=== PATIENT | female | born 1950 | race Two or more races ===

== ENCOUNTER 2022-11-22 19:36 | Inpatient (IN) | payer MEDICARE, OTHER ==
[~2022-11-22] VITALS: Ht 175.3 cm; Wt 106.7 kg
[2022-11-22] MEDS ORDERED: cloNIDine HCL 0.1 MG TAB PO ONE (20:15)
[2022-11-22 21:02] LABS: Basophils # (auto) 0 10 ^3/uL (0-0.2); Basophils % (auto) 0.3 % (0.0-2.0); Eosinophils # (auto) 0 10 ^3/uL (0-0.8); Eosinophils % (auto) 0.2 % (0.0-7.0); Hematocrit 43.4 % (36.0-46.0); Hemoglobin 14.4 g/dL (12.2-16.2); Lymphocytes # (auto) 2.2 10 ^3/uL (0.4-5.4); Lymphocytes % (auto) 34.6 % (10.0-50.0); Mean Corpuscular Hemoglobin 28.3 pg (28.0-32.0); Mean Corpuscular Hgb Conc. 33.3 g/dL (32.0-36.0); Monocytes % (auto) 15.3 % (0.0-12.0); Neutrophils # (auto) 3.1 10 ^3/uL (1.6-8.6); Neutrophils % (auto) 49.6 % (37.0-80.0); Red Cell Distribution Width 14.9 % (11.8-14.3); White Blood Cell 6.3 10^3/uL (4.4-10.8)
[2022-11-22 21:16] LABS: INR 1.01 (0.9-1.15); Partial Thromboplastin Time 31.9 SEC (24.5-34.5); Prothrombin Time 10.6 sec (9.3-11.8)
[2022-11-22 21:19] LABS: Albumin 4.5 g/dL (3.4-5.0); BUN/Creatinine Ratio 21.4 (10.0-20.0); Magnesium 2.4 mg/dL (1.6-2.6); Potassium 4.1 mmol/L (3.5-5.1)
[2022-11-22 21:28] LABS: Bilirubin, Total 1.3 mg/dL (0.2-1.0); Total Protein 7.9 g/dL (6.4-8.2)
[2022-11-22] MEDS ORDERED: ACETAMINOPHEN 325 MG TAB PO ONE (22:00)
[2022-11-23] MEDS ORDERED: IBUPROFEN 600 MG TAB PO ONE (01:30)
[2022-11-23 02:30] LABS: Urine Bacteria FEW /hpf (None Seen); Urine Blood Negative /uL (Negative); Urine Clarity HAZY (Clear); Urine Color Colorless (Yellow); Urine Hyaline Cast FEW /lpf (0 - 2); Urine Protein, UAD Negative (Negative); Urine Urobilinogen Normal (Negative); Urine WBC 90 /hpf (0 - 5); Urine WBC Clumps PRESENT /hpf (None Seen); Urine pH 5.5 (5.0-8.0)
[2022-11-23] MEDS ORDERED: hydrALAZINE HCL 20 MG/ML VL IV PRN (03:45)
[2022-11-23] MEDS ORDERED: MORPHINE SULFATE INJ 2 MG/ml SYRG IV PRN (03:45)
[2022-11-23] MEDS ORDERED: ONDANSETRON HCL 4 MG/2 ML VIAL IV PRN (03:45)
[2022-11-23] MEDS ORDERED: NITROGLYCERIN 0.4 MG SL TAB SL PRN (03:45)
[2022-11-23 04:45] VITALS: PULSE 53; RESP 20; O2SAT 93
[2022-11-23] MEDS: cefTRIAXone 1GM/50ML D5W 50 ML IV SCH (04:55)
[2022-11-23 07:30] VITALS: PULSE 57; RESP 17; O2SAT 95
[2022-11-23] MEDS ORDERED: LISINOPRIL 10 MG TAB PO SCH (10:00)
[2022-11-23] MEDS ORDERED: ENOXAPARIN SOD 40 MG/0.4 ML SYRINGE SC SCH (10:00)
[2022-11-23] MEDS ORDERED: PANTOPRAZOLE 40 MG TAB PO SCH (10:00)
[2022-11-23] MEDS: ACETAMINOPHEN 325 MG TAB PO PRN (11:00)
[2022-11-23] MEDS ORDERED: FLUTICASONE PROP NASAL SPR 0.05 % (50MCG) 16GM EACHNOSTRI ONE (14:15)
[2022-11-23] MEDS ORDERED: OXYMETAZOLINE HCL 0.05 % NASAL SPRAY 15ML EACHNOSTRI ONE (14:15)
[2022-11-23] MEDS ORDERED: AZITHROMYCIN 500MG/ 250ML 250 ML IV ONE (14:15)
[2022-11-23] MEDS: MORPHINE SULFATE INJ 2 MG/ml SYRG IV PRN (14:46)
[2022-11-23 17:14] LABS: Alcohol, Urine < 3.0 mg/dL (0-10); Amphetamine Screen, Urine NEGATIVE (NEGATIVE); Barbiturate Scree,Urine NEGATIVE (NEGATIVE); Benzodiazephine Screen, Urine NEGATIVE (NEGATIVE); Cannabinoid Screen, Urine NEGATIVE (NEGATIVE); Cocaine Screen, Urine NEGATIVE (NEGATIVE); Opiate Scree,Urine NEGATIVE (NEGATIVE); Phencyclidine Screen, Urine NEGATIVE (NEGATIVE)
[2022-11-23 19:20] VITALS: RESP 20; O2SAT 95
[2022-11-23] MEDS: HYDROcodone-ACET 5/325MG TAB PO PRN (19:55)
[2022-11-23] MEDS: FLUTICASONE PROP NASAL SPR 0.05 % (50MCG) 16GM EACHNOSTRI SCH (23:21)
[2022-11-23] MEDS: OXYMETAZOLINE HCL 0.05 % NASAL SPRAY 15ML EACHNOSTRI SCH (23:21)
[2022-11-23] MEDS: APIXABAN 5 MG TAB PO SCH (23:22)
[2022-11-24] VITALS (7 sets, daily range): BP systolic 133–150; BP diastolic 63–71; PULSE 68–92; RESP 16–19; TEMP 98.8–99.5; O2SAT 91–97
[2022-11-24 05:17] LABS: Basophils # (auto) 0 10 ^3/uL (0-0.2); Basophils % (auto) 0.2 % (0.0-2.0); Eosinophils # (auto) 0 10 ^3/uL (0-0.8); Hematocrit 39.7 % (36.0-46.0); Hemoglobin 13.4 g/dL (12.2-16.2); Lymphocytes # (auto) 1.3 10 ^3/uL (0.4-5.4); Lymphocytes % (auto) 17.9 % (10.0-50.0); Mean Corpuscular Hemoglobin 28.6 pg (28.0-32.0); Mean Corpuscular Hgb Conc. 33.8 g/dL (32.0-36.0); Mean Corpuscular Volume 84.5 fL (80.0-100.0); Neutrophils # (auto) 4.9 10 ^3/uL (1.6-8.6); Neutrophils % (auto) 67.9 % (37.0-80.0); Red Cell Distribution Width 14.6 % (11.8-14.3); White Blood Cell 7.2 10^3/uL (4.4-10.8)
[2022-11-24 05:21] LABS: Albumin 3.9 g/dL (3.4-5.0); Calcium 10.1 mg/dL (8.5-10.1); Potassium 3.3 mmol/L (3.5-5.1)
[2022-11-24 05:28] LABS: BUN/Creatinine Ratio 20.3 (10.0-20.0); Bilirubin, Total 1.4 mg/dL (0.2-1.0); Total Protein 7.6 g/dL (6.4-8.2)
[2022-11-24] MEDS: HYDROcodone-ACET 5/325MG TAB PO PRN (05:40)
[2022-11-24] MEDS ORDERED: POTASSIUM EFFERVESENT TAB 25 MEQ PO ONE (07:45)
[2022-11-24] MEDS: cefTRIAXone 1GM/50ML D5W 50 ML IV SCH (09:31)
[2022-11-24] MEDS: APIXABAN 5 MG TAB PO SCH ×2 (09:31→22:34)
[2022-11-24] MEDS ORDERED: BENAZEPRIL HCL 10 MG TAB PO SCH (10:00)
[2022-11-24] MEDS: FLUTICASONE PROP NASAL SPR 0.05 % (50MCG) 16GM EACHNOSTRI SCH ×2 (10:08→22:35)
[2022-11-24] MEDS: OXYMETAZOLINE HCL 0.05 % NASAL SPRAY 15ML EACHNOSTRI SCH ×2 (10:08→22:36)
[2022-11-24] MEDS: ACETAMINOPHEN 325 MG TAB PO PRN ×2 (11:17→20:44)
[2022-11-24] MEDS: AZITHROMYCIN 500MG/ 250ML 250 ML IV SCH (11:59)
[2022-11-24] MEDS ORDERED: FLUCONAZOLE 200MG/100ML 100 ML IV ONE (12:15)
[2022-11-24] MEDS: MORPHINE SULFATE INJ 2 MG/ml SYRG IV PRN (18:43)
[2022-11-24] MEDS: ATORVASTATIN 20 MG TAB PO SCH (22:34)
[2022-11-25] VITALS (9 sets, daily range): BP systolic 116–166; BP diastolic 67–86; PULSE 72–85; RESP 18–19; TEMP 98.3–99.6; O2SAT 91–95
[2022-11-25] MEDS: ACETAMINOPHEN 325 MG TAB PO PRN ×3 (05:54→20:29)
[2022-11-25 06:46] LABS: Hematocrit 41.8 % (36.0-46.0); Mean Corpuscular Hemoglobin 28.3 pg (28.0-32.0); Mean Corpuscular Hgb Conc. 33.4 g/dL (32.0-36.0); Mean Corpuscular Volume 84.8 fL (80.0-100.0); Red Blood Cells 4.93 10^6/uL (4.0-5.20); Red Cell Distribution Width 14.5 % (11.8-14.3); White Blood Cell 6.5 10^3/uL (4.4-10.8)
[2022-11-25 07:01] LABS: Albumin 3.5 g/dL (3.4-5.0); Calcium 10.3 mg/dL (8.5-10.1); Potassium 3.8 mmol/L (3.5-5.1)
[2022-11-25 07:05] LABS: BUN/Creatinine Ratio 20.3 (10.0-20.0); Bilirubin, Total 1.2 mg/dL (0.2-1.0); Total Protein 7.8 g/dL (6.4-8.2)
[2022-11-25 07:06] LABS: Band Neutrophils % (manual) 0; Basophils % (manual) 0 (0.0-2.0); Blast Cells 0; Metamyelocytes % 0; Myelocytes % 0; Promyelocytes % 0; Reactive Lymphocytes 0
[2022-11-25 08:23] LABS: Eosinophils % (manual) 1 (0-7); Lymphocytes % (manual) 22 (10.0-50.0)
[2022-11-25 08:24] LABS: Monocytes % (manual) 19 (0-12); Platelet Estimate Adequate
[2022-11-25] MEDS: FLUTICASONE PROP NASAL SPR 0.05 % (50MCG) 16GM EACHNOSTRI SCH ×2 (09:36→21:36)
[2022-11-25] MEDS: FLUCONAZOLE 200MG/100ML 100 ML IV SCH (09:36)
[2022-11-25] MEDS: cefTRIAXone 1GM/50ML D5W 50 ML IV SCH (09:36)
[2022-11-25] MEDS: OXYMETAZOLINE HCL 0.05 % NASAL SPRAY 15ML EACHNOSTRI SCH ×2 (09:36→21:36)
[2022-11-25] MEDS: BENAZEPRIL HCL 10 MG TAB PO SCH ×2 (09:37→21:35)
[2022-11-25] MEDS: AZITHROMYCIN 500MG/ 250ML 250 ML IV SCH (09:38)
[2022-11-25] MEDS: HYDROcodone-ACET 5/325MG TAB PO PRN ×2 (09:51→16:33)
[2022-11-25] MEDS: APIXABAN 5 MG TAB PO SCH ×2 (09:58→21:34)
[2022-11-25] MEDS ORDERED: BENAZEPRIL HCL 10 MG TAB PO SCH (10:00)
[2022-11-25] MEDS ORDERED: IOHEXOL 300 MG/ML 100ML BOTTLE IJ ONE (17:35)
[2022-11-25] MEDS: DOXYCYCLINE 100 MG TAB/CAP PO SCH (21:35)
[2022-11-25] MEDS: ATORVASTATIN 20 MG TAB PO SCH (21:36)
[2022-11-26] VITALS (7 sets, daily range): BP systolic 136–149; BP diastolic 70–80; PULSE 72–91; RESP 18–20; TEMP 36.8; O2SAT 93–96
[2022-11-26] MEDS: ACETAMINOPHEN 325 MG TAB PO PRN ×3 (02:25→17:52)
[2022-11-26 06:08] LABS: Basophils # (auto) 0 10 ^3/uL (0-0.2); Basophils % (auto) 0.2 % (0.0-2.0); Eosinophils # (auto) 0 10 ^3/uL (0-0.8); Eosinophils % (auto) 0.2 % (0.0-7.0); Hematocrit 39.2 % (36.0-46.0); Hemoglobin 13.2 g/dL (12.2-16.2); Lymphocytes # (auto) 1.9 10 ^3/uL (0.4-5.4); Lymphocytes % (auto) 29.6 % (10.0-50.0); Mean Corpuscular Hemoglobin 28.6 pg (28.0-32.0); Mean Corpuscular Hgb Conc. 33.7 g/dL (32.0-36.0); Mean Corpuscular Volume 84.9 fL (80.0-100.0); Monocytes # (auto) 1.1 10 ^3/uL (0-1.3); Monocytes % (auto) 16.9 % (0.0-12.0); Neutrophils # (auto) 3.4 10 ^3/uL (1.6-8.6); Neutrophils % (auto) 53.1 % (37.0-80.0); Red Blood Cells 4.62 10^6/uL (4.0-5.20); Red Cell Distribution Width 14.8 % (11.8-14.3); White Blood Cell 6.4 10^3/uL (4.4-10.8)
[2022-11-26 06:26] LABS: Potassium 4.1 mmol/L (3.5-5.1)
[2022-11-26 06:46] LABS: Albumin 3.5 g/dL (3.4-5.0); BUN/Creatinine Ratio 19.5 (10.0-20.0); Bilirubin, Total 0.9 mg/dL (0.2-1.0); Calcium 10.6 mg/dL (8.5-10.1); Magnesium 2.6 mg/dL (1.6-2.6); Total Protein 7.5 g/dL (6.4-8.2)
[2022-11-26] MEDS: cefTRIAXone 1GM/50ML D5W 50 ML IV SCH (09:03)
[2022-11-26] MEDS: APIXABAN 5 MG TAB PO SCH ×2 (09:04→22:32)
[2022-11-26] MEDS: BENAZEPRIL HCL 10 MG TAB PO SCH ×2 (09:04→22:33)
[2022-11-26] MEDS: amLODIPine BESYLATE 5 MG TAB PO SCH (09:05)
[2022-11-26] MEDS: DOXYCYCLINE 100 MG TAB/CAP PO SCH ×2 (09:05→22:34)
[2022-11-26] MEDS: FLUTICASONE PROP NASAL SPR 0.05 % (50MCG) 16GM EACHNOSTRI SCH ×2 (09:10→19:48)
[2022-11-26] MEDS: OXYMETAZOLINE HCL 0.05 % NASAL SPRAY 15ML EACHNOSTRI SCH ×2 (09:10→19:48)
[2022-11-26] MEDS: FLUCONAZOLE 200MG/100ML 100 ML IV SCH (10:19)
[2022-11-26] MEDS: HYDROcodone-ACET 5/325MG TAB PO PRN (14:09)
[2022-11-26] MEDS: MORPHINE SULFATE INJ 2 MG/ml SYRG IV PRN (19:49)
[2022-11-26] MEDS: ATORVASTATIN 20 MG TAB PO SCH (22:33)
[2022-11-27] VITALS (7 sets, daily range): BP systolic 132–152; BP diastolic 75–81; PULSE 75–86; RESP 15–20; TEMP 98.1–99.2; O2SAT 91–93
[2022-11-27 06:22] LABS: Basophils # (auto) 0 10 ^3/uL (0-0.2); Basophils % (auto) 0.2 % (0.0-2.0); Eosinophils # (auto) 0 10 ^3/uL (0-0.8); Eosinophils % (auto) 0.2 % (0.0-7.0); Hemoglobin 12.9 g/dL (12.2-16.2); Lymphocytes # (auto) 1.9 10 ^3/uL (0.4-5.4); Lymphocytes % (auto) 30.8 % (10.0-50.0); Mean Corpuscular Hemoglobin 29.2 pg (28.0-32.0); Mean Corpuscular Hgb Conc. 34.7 g/dL (32.0-36.0); Mean Corpuscular Volume 84.1 fL (80.0-100.0); Monocytes % (auto) 16.1 % (0.0-12.0); Neutrophils # (auto) 3.2 10 ^3/uL (1.6-8.6); Neutrophils % (auto) 52.7 % (37.0-80.0); Nucleated Red Blood Cells % 0.1 %; Red Cell Distribution Width 14.3 % (11.8-14.3); White Blood Cell 6.1 10^3/uL (4.4-10.8)
[2022-11-27 06:44] LABS: Potassium 4.3 mmol/L (3.5-5.1)
[2022-11-27 06:53] LABS: Albumin 3.6 g/dL (3.4-5.0); Calcium 10.3 mg/dL (8.5-10.1); Total Protein 7.5 g/dL (6.4-8.2)
[2022-11-27] MEDS: ACETAMINOPHEN 325 MG TAB PO PRN ×2 (08:27→16:58)
[2022-11-27] MEDS: cefTRIAXone 1GM/50ML D5W 50 ML IV SCH (08:27)
[2022-11-27] MEDS: FLUTICASONE PROP NASAL SPR 0.05 % (50MCG) 16GM EACHNOSTRI SCH ×2 (09:34→21:41)
[2022-11-27] MEDS: OXYMETAZOLINE HCL 0.05 % NASAL SPRAY 15ML EACHNOSTRI SCH ×2 (09:34→21:41)
[2022-11-27] MEDS: FLUCONAZOLE 200MG/100ML 100 ML IV SCH (09:35)
[2022-11-27] MEDS: APIXABAN 5 MG TAB PO SCH ×2 (09:35→21:41)
[2022-11-27] MEDS: DOXYCYCLINE 100 MG TAB/CAP PO SCH ×2 (09:36→21:42)
[2022-11-27] MEDS: amLODIPine BESYLATE 5 MG TAB PO SCH (09:36)
[2022-11-27] MEDS: BENAZEPRIL HCL 10 MG TAB PO SCH ×2 (09:36→21:42)
[2022-11-27] MEDS: SERTRALINE HCL 50 MG TAB PO SCH (10:47)
[2022-11-27] MEDS ORDERED: AMPHOTERICIN B LIPOSOME IV SCH (14:00)
[2022-11-27] MEDS ORDERED: D5W 5% IV SCH (14:00)
[2022-11-27] MEDS ORDERED: diphenhdrAMINE HCL 50 MG/1 ML VL IV SCH (14:00)
[2022-11-27] MEDS ORDERED: ACETAMINOPHEN 325 MG TAB PO SCH (14:00)
[2022-11-27] MEDS ORDERED: MORPHINE SULFATE INJ 2 MG/ml SYRG IV PRN (16:30)
[2022-11-27] MEDS: ATORVASTATIN 20 MG TAB PO SCH (21:41)
[2022-11-28] MEDS: ACETAMINOPHEN 325 MG TAB PO PRN ×3 (01:12→17:20)
[2022-11-28 05:00] VITALS: BP 134/77; PULSE 74; RESP 20; TEMP 98.3; O2SAT 93
[2022-11-28 05:18] LABS: Basophils # (auto) 0 10 ^3/uL (0-0.2); Basophils % (auto) 0.3 % (0.0-2.0); Eosinophils # (auto) 0 10 ^3/uL (0-0.8); Eosinophils % (auto) 0.4 % (0.0-7.0); Hematocrit 37.7 % (36.0-46.0); Hemoglobin 12.6 g/dL (12.2-16.2); Lymphocytes # (auto) 1.9 10 ^3/uL (0.4-5.4); Lymphocytes % (auto) 35.5 % (10.0-50.0); Mean Corpuscular Hemoglobin 28.8 pg (28.0-32.0); Mean Corpuscular Hgb Conc. 33.4 g/dL (32.0-36.0); Monocytes # (auto) 0.9 10 ^3/uL (0-1.3); Monocytes % (auto) 17.7 % (0.0-12.0); Neutrophils # (auto) 2.4 10 ^3/uL (1.6-8.6); Neutrophils % (auto) 46.1 % (37.0-80.0); Nucleated Red Blood Cells % 0.1 %; Red Blood Cells 4.38 10^6/uL (4.0-5.20); Red Cell Distribution Width 14.5 % (11.8-14.3); White Blood Cell 5.3 10^3/uL (4.4-10.8)
[2022-11-28 05:29] LABS: Albumin 3.5 g/dL (3.4-5.0); BUN/Creatinine Ratio 21.9 (10.0-20.0); Calcium 10.2 mg/dL (8.5-10.1); Magnesium 2.6 mg/dL (1.6-2.6); Potassium 4.5 mmol/L (3.5-5.1)
[2022-11-28 05:32] LABS: Bilirubin, Total 0.8 mg/dL (0.2-1.0); Total Protein 7.3 g/dL (6.4-8.2)
[2022-11-28 09:00] VITALS: BP 157/89; PULSE 85; RESP 18; TEMP 98.3; O2SAT 94
[2022-11-28] MEDS: cefTRIAXone 1GM/50ML D5W 50 ML IV SCH (09:34)
[2022-11-28] MEDS ORDERED: MICAFUNGIN SODIUM 100 MG in SODIUM CHL 0.9% 100 ML IV SCH (10:00)
[2022-11-28] MEDS: FLUTICASONE PROP NASAL SPR 0.05 % (50MCG) 16GM EACHNOSTRI SCH (10:09)
[2022-11-28] MEDS: OXYMETAZOLINE HCL 0.05 % NASAL SPRAY 15ML EACHNOSTRI SCH (10:09)
[2022-11-28] MEDS: APIXABAN 5 MG TAB PO SCH (10:15)
[2022-11-28] MEDS: amLODIPine BESYLATE 5 MG TAB PO SCH (10:15)
[2022-11-28] MEDS: DOXYCYCLINE 100 MG TAB/CAP PO SCH (10:15)
[2022-11-28] MEDS: SERTRALINE HCL 50 MG TAB PO SCH (10:16)
[2022-11-28] MEDS: BENAZEPRIL HCL 10 MG TAB PO SCH (10:16)
[2022-11-28] MEDS ORDERED: AMOX875T4 PO (12:27)
[2022-11-28] MEDS ORDERED: FLUT1SPR9 (12:27)
[2022-11-28] MEDS ORDERED: FLUC200T50 PO (12:27)
[2022-11-28 13:00] VITALS: BP 145/78; PULSE 83; RESP 18; TEMP 98.5; O2SAT 93
[2022-11-28 17:00] VITALS: BP 155/78; PULSE 78; RESP 18; TEMP 98.5; O2SAT 97
[2022-11-28 17:13] VITALS: BP 157/89; TEMP 36.9
== END 2022-11-28 18:00 | disposition home health service (06) | DRG 199 ==
LOC: ER 19:36 → TELE 11-23 03:41 → TELE-CENTR 11-24 10:54 → CENTRAL 11-25 21:38
PROVIDERS: ADMIT Internal Medicine; ATTEND Student in an Organized Health Care Education/Training Program
PROC: 05HF33Z Insertion of Infusion Device into Left Cephalic Vein, Percutaneous Approach (ICD-10-PCS; principal; 2022-11-26)
PROC: B54NZZA Ultrasonography of Left Upper Extremity Veins, Guidance (ICD-10-PCS; 2022-11-26)
DX: I16.0 Hypertensive urgency (principal); E80.6 Other disorders of bilirubin metabolism; E83.52 Hypercalcemia; N39.0 Urinary tract infection, site not specified; J32.9 Chronic sinusitis, unspecified; E87.6 Hypokalemia; F32.A Depression, unspecified; Z96.641 Presence of right artificial hip joint; M62.08 Separation of muscle (nontraumatic), other site; Z86.711 Personal history of pulmonary embolism; Z86.718 Personal history of other venous thrombosis and embolism; Z59.00 Homelessness unspecified
CPT/HCPCS: 36415; 70450; 70488; 71045; 80053; 80061; 80307; 81001; 82306; 82607; 83036; 83735; 83880; 84443; 84484; 85007; 85025; 85027; 85379; 85610; 85730; 87040; 87070; 87086; 87186; 93005; G0378; J0696; J1450; J2248; J2405

== ENCOUNTER 2023-04-21 11:51 | Inpatient (IN) | payer MEDICARE, MEDICAID ==
[~2023-04-21] VITALS: Ht 175.3 cm; Wt 111.1 kg
[~2023-04-21 11:51] MED LIST: AMOX875T4 PO; FLUC200T50 PO; FLUT1SPR9
[2023-04-21 12:33] LABS: Basophils # (auto) 0 10 ^3/uL (0-0.2); Basophils % (auto) 0.2 % (0.0-2.0); Eosinophils # (auto) 0 10 ^3/uL (0-0.8); Eosinophils % (auto) 0.2 % (0.0-7.0); Hematocrit 42.1 % (36.0-46.0); Lymphocytes # (auto) 1.4 10 ^3/uL (0.4-5.4); Lymphocytes % (auto) 38.6 % (10.0-50.0); Mean Corpuscular Hemoglobin 28.9 pg (28.0-32.0); Mean Corpuscular Hgb Conc. 33.3 g/dL (32.0-36.0); Mean Corpuscular Volume 86.6 fL (80.0-100.0); Monocytes # (auto) 0.4 10 ^3/uL (0-1.3); Monocytes % (auto) 10.8 % (0.0-12.0); Neutrophils # (auto) 1.9 10 ^3/uL (1.6-8.6); Neutrophils % (auto) 50.2 % (37.0-80.0); Red Blood Cells 4.86 10^6/uL (4.0-5.20); Red Cell Distribution Width 13.9 % (11.8-14.3); White Blood Cell 3.7 10^3/uL (4.4-10.8)
[2023-04-21 12:44] LABS: Alanine Aminotransferase 21 U/L (7-40); Alkaline Phosphatase 68 U/L (46-116); Anion Gap 9 (5-15); Aspartate Aminotransferase 20 U/L (13-40); BUN/Creatinine Ratio 19.7 (10.0-20.0); Blood Urea Nitrogen 14 mg/dL (9-23); Calcium 10.7 mg/dL (8.7-10.4); Carbon Dioxide 25 mmol/L (20-30); Chloride 108 mmol/L (98-107); Glucose 123 mg/dL (74-106); Potassium 3.7 mmol/L (3.5-5.1); Sodium 142 mmol/L (136-145)
[2023-04-21 12:45] LABS: Bilirubin, Total 1.5 mg/dL (0.2-1.0); Total Protein 7.5 g/dL (5.7-8.2)
[2023-04-21 14:27] LABS: Urine Bacteria FEW /hpf (None Seen); Urine Blood Negative /uL (Negative); Urine Clarity HAZY (Clear); Urine Color Yellow (Yellow); Urine Mucus FEW (None Seen); Urine Protein, UAD Negative (Negative); Urine Specific Gravity 1.018 (1.001-1.035); Urine Urobilinogen Normal (Negative); Urine WBC 59 /hpf (0 - 5)
[2023-04-21 17:07] VITALS: RESP 16; O2SAT 96
[2023-04-21] MEDS ORDERED: MORPHINE SULFATE INJ 2 MG/ml SYRG IV PRN (18:15)
[2023-04-21] MEDS ORDERED: ONDANSETRON HCL 4 MG/2 ML VIAL IV PRN (18:15)
[2023-04-21] MEDS ORDERED: DOCUSATE SOD 100 MG CAP PO PRN (18:15)
[2023-04-21] MEDS: SODIUM CHLORIDE 0.9% 1,000 ML IV SCH (21:30)
[2023-04-22] VITALS (9 sets, daily range): BP systolic 118–146; BP diastolic 66–91; PULSE 70–82; RESP 16–18; TEMP 97.8–98.1; O2SAT 93–97
[2023-04-22] MEDS: MORPHINE SULFATE INJ 2 MG/ml SYRG IV PRN ×2 (02:26→21:50)
[2023-04-22] MEDS: SODIUM CHLORIDE 0.9% 1,000 ML IV SCH ×2 (02:26→10:55)
[2023-04-22] MEDS ORDERED: SIMV80TA17 PO (03:00)
[2023-04-22] MEDS ORDERED: SERT-206 PO (03:01)
[2023-04-22] MEDS ORDERED: AMLO1TAB23 PO (03:04)
[2023-04-22] MEDS ORDERED: ATOR10TA52 PO (03:07)
[2023-04-22 06:27] LABS: Basophils # (auto) 0 10 ^3/uL (0-0.2); Basophils % (auto) 0.2 % (0.0-2.0); Eosinophils # (auto) 0 10 ^3/uL (0-0.8); Eosinophils % (auto) 0.2 % (0.0-7.0); Hematocrit 39.3 % (36.0-46.0); Hemoglobin 13.1 g/dL (12.2-16.2); Lymphocytes # (auto) 1.5 10 ^3/uL (0.4-5.4); Lymphocytes % (auto) 41.3 % (10.0-50.0); Mean Corpuscular Hgb Conc. 33.3 g/dL (32.0-36.0); Mean Corpuscular Volume 87.2 fL (80.0-100.0); Monocytes # (auto) 0.6 10 ^3/uL (0-1.3); Monocytes % (auto) 17.1 % (0.0-12.0); Neutrophils # (auto) 1.5 10 ^3/uL (1.6-8.6); Neutrophils % (auto) 41.2 % (37.0-80.0); Nucleated Red Blood Cells % 0.2 %; Red Blood Cells 4.51 10^6/uL (4.0-5.20); Red Cell Distribution Width 13.6 % (11.8-14.3); White Blood Cell 3.7 10^3/uL (4.4-10.8)
[2023-04-22 06:40] LABS: Alanine Aminotransferase 17 U/L (7-40); Alkaline Phosphatase 60 U/L (46-116); Anion Gap 7 (5-15); BUN/Creatinine Ratio 29.2 (10.0-20.0); Blood Urea Nitrogen 19 mg/dL (9-23); Calcium 10.3 mg/dL (8.5-10.1); Carbon Dioxide 26 mmol/L (20-30); Chloride 110 mmol/L (98-107); Glucose 103 mg/dL (74-106); Potassium 3.7 mmol/L (3.5-5.1); Sodium 143 mmol/L (136-145)
[2023-04-22 06:41] LABS: Albumin 4.6 g/dL (3.2-4.8); Aspartate Aminotransferase 19 U/L (13-40); Total Protein 6.7 g/dL (5.7-8.2)
[2023-04-22] MEDS: cefTRIAXone 1GM/50ML D5W 50 ML IV SCH (09:49)
[2023-04-22] MEDS: ENOXAPARIN SOD 40 MG/0.4 ML SYRINGE SC SCH (09:57)
[2023-04-22] MEDS: amLODIPine BESYLATE 5 MG TAB PO SCH (09:58)
[2023-04-22] MEDS: BENAZEPRIL HCL 10 MG TAB PO SCH (09:58)
[2023-04-23] MEDS: SODIUM CHLORIDE 0.9% 1,000 ML IV SCH ×2 (02:53→11:55)
[2023-04-23 05:00] VITALS: BP 160/81; PULSE 79; RESP 18; TEMP 98; O2SAT 93
[2023-04-23 06:38] LABS: Alanine Aminotransferase 15 U/L (7-40); Albumin 4.5 g/dL (3.2-4.8); Alkaline Phosphatase 59 U/L (46-116); Anion Gap 9 (5-15); Aspartate Aminotransferase 14 U/L (13-40); BUN/Creatinine Ratio 23.1 (10.0-20.0); Bilirubin, Total 0.9 mg/dL (0.2-1.0); Blood Urea Nitrogen 15 mg/dL (9-23); Calcium 10.3 mg/dL (8.7-10.4); Carbon Dioxide 23 mmol/L (20-30); Chloride 109 mmol/L (98-107); Glucose 110 mg/dL (74-106); Sodium 141 mmol/L (136-145); Total Protein 6.6 g/dL (5.7-8.2)
[2023-04-23 08:00] VITALS: BP 148/80; PULSE 74; PULSE 79; RESP 20; TEMP 98; O2SAT 92
[2023-04-23] MEDS: ENOXAPARIN SOD 40 MG/0.4 ML SYRINGE SC SCH (09:09)
[2023-04-23] MEDS: amLODIPine BESYLATE 5 MG TAB PO SCH (09:09)
[2023-04-23] MEDS: cefTRIAXone 1GM/50ML D5W 50 ML IV SCH (09:09)
[2023-04-23] MEDS: BENAZEPRIL HCL 10 MG TAB PO SCH (09:10)
[2023-04-23 12:00] VITALS: BP 129/66; PULSE 71; RESP 20; TEMP 98.2; O2SAT 93
[2023-04-23 16:03] VITALS: BP 129/66; PULSE 71; RESP 20; TEMP 98.2; O2SAT 93
[2023-04-23] MEDS ORDERED: CEPH500C PO (16:27)
[2023-04-27 14:06] LABS: Vitamin D 25-Hydroxy 35 ng/mL (.); Vitamin D-2 25-Hydroxy <1.0 ng/mL (.); Vitamin D-3 25-Hydroxy 35 ng/mL (.)
== END 2023-04-23 17:30 | disposition home or self-care (01) | DRG 425 ==
LOC: ER 11:51 → TELE 18:13 → TELE-WESTW 23:23
PROVIDERS: ADMIT Nurse Practitioner Family; ATTEND Nurse Practitioner Family
DX: E83.52 Hypercalcemia (principal); E66.01 Morbid (severe) obesity due to excess calories; E78.5 Hyperlipidemia, unspecified; F41.9 Anxiety disorder, unspecified; I10 Essential (primary) hypertension; N30.00 Acute cystitis without hematuria; Z96.653 Presence of artificial knee joint, bilateral; K21.9 Gastro-esophageal reflux disease without esophagitis; Z98.82 Breast implant status; Z68.36 Body mass index [BMI] 36.0-36.9, adult
CPT/HCPCS: 36415; 80053; 81001; 82306; 83735; 83970; 84100; 84443; 85025; 87086; 93005; G0378

== ENCOUNTER → 2023-05-01 | Outpatient (CLI) | payer MEDICARE, MEDICAID ==
[~2023-05-01] MED LIST changes: +AMLO1TAB23 PO; -AMOX875T4 PO; +ATOR10TA52 PO; +CEPH500C PO; -FLUC200T50 PO; -FLUT1SPR9; +SERT-206 PO
== END | disposition home or self-care (01) ==
LOC: XYW 12:40
PROVIDERS: ATTEND Internal Medicine
DX: I51.7 Cardiomegaly (principal); R07.9 Chest pain, unspecified; R06.02 Shortness of breath
CPT/HCPCS: 93306

== ENCOUNTER → 2023-11-01 | Outpatient (CLI) | payer MEDICARE, MEDICAID ==
[~2023-11-01] MED LIST changes: +ACET500T58 PO; +AMOX500C2 PO
[2023-11-01 08:00] LABS: Basophils # (auto) 0 10 ^3/uL (0-0.2); Basophils % (auto) 0.2 % (0.0-2.0); Eosinophils # (auto) 0 10 ^3/uL (0-0.8); Eosinophils % (auto) 0.2 % (0.0-7.0); Hematocrit 39.2 % (36.0-46.0); Hemoglobin 13.6 g/dL (12.2-16.2); Lymphocytes # (auto) 2.3 10 ^3/uL (0.4-5.4); Lymphocytes % (auto) 51.3 % (10.0-50.0); Mean Corpuscular Hemoglobin 29.5 pg (28.0-32.0); Mean Corpuscular Hgb Conc. 34.7 g/dL (32.0-36.0); Monocytes # (auto) 0.6 10 ^3/uL (0-1.3); Monocytes % (auto) 14.1 % (0.0-12.0); Neutrophils # (auto) 1.5 10 ^3/uL (1.6-8.6); Neutrophils % (auto) 34.2 % (37.0-80.0); Red Blood Cells 4.61 10^6/uL (4.0-5.20); Red Cell Distribution Width 14.1 % (11.8-14.3); White Blood Cell 4.5 10^3/uL (4.4-10.8)
[2023-11-01 08:19] LABS: Alanine Aminotransferase 16 U/L (7-40); Albumin 4.7 g/dL (3.2-4.8); Alkaline Phosphatase 62 U/L (46-116); Anion Gap 8 (5-15); Aspartate Aminotransferase 13 U/L (13-40); BUN/Creatinine Ratio 23.6 (10.0-20.0); Bilirubin, Total 1.1 mg/dL (0.2-1.0); Blood Urea Nitrogen 17 mg/dL (9-23); Calcium 10.4 mg/dL (8.7-10.4); Carbon Dioxide 25 mmol/L (20-30); Chloride 111 mmol/L (98-107); Cholesterol 110 mg/dL (< 200); Glucose 109 mg/dL (74-106); HDL Cholesterol 33 mg/dL (40-59); LDL Cholesterol 58 mg/dL (< 100); Potassium 4.1 mmol/L (3.5-5.1); Sodium 144 mmol/L (136-145); Triglycerides 93 mg/dL (< 150)
[2023-11-02 08:49] LABS: Urine Bacteria FEW /hpf (None Seen); Urine Blood Negative /uL (Negative); Urine Clarity Turbid (Clear); Urine Color Light-Yellow (Yellow); Urine Protein, UAD Negative (Negative); Urine Specific Gravity 1.016 (1.001-1.035); Urine Urobilinogen 2 mg/dL (Negative); Urine WBC 4 /hpf (0 - 5); Urine pH 6.5 (5.0-9.0)
== END | disposition home or self-care (01) ==
LOC: LAB 07:30
PROVIDERS: ATTEND Internal Medicine
DX: I10 Essential (primary) hypertension (principal); E11.69 Type 2 diabetes mellitus with other specified complication; E83.52 Hypercalcemia
CPT/HCPCS: 36415; 80053; 80061; 81001; 83036; 84439; 84443; 85025

== ENCOUNTER → 2023-12-12 | Outpatient (CLI) | payer MEDICARE, MEDICAID ==
[2023-12-12 10:33] LABS: Urine Bacteria FEW /hpf (None Seen); Urine Blood Negative /uL (Negative); Urine Clarity Clear (Clear); Urine Color Light-Yellow (Yellow); Urine Protein, UAD Negative (Negative); Urine Specific Gravity 1.016 (1.001-1.035); Urine Urobilinogen Normal (Negative); Urine WBC 3 /hpf (0 - 5); Urine pH 6.5 (5.0-9.0)
[2023-12-12 10:34] LABS: Anion Gap 6 (5-15); Carbon Dioxide 27 mmol/L (20-30); Chloride 107 mmol/L (98-107); Potassium 4.2 mmol/L (3.5-5.1); Sodium 140 mmol/L (136-145)
[2023-12-12 10:35] LABS: Calcium 11.4 mg/dL (8.7-10.4)
[2023-12-12 10:40] LABS: BUN/Creatinine Ratio 21.1 (10.0-20.0); Blood Urea Nitrogen 16 mg/dL (9-23); Glucose 97 mg/dL (74-106)
== END | disposition home or self-care (01) ==
LOC: LAB 09:40
PROVIDERS: ATTEND Internal Medicine
DX: I10 Essential (primary) hypertension (principal); R73.03 Prediabetes; R82.90 Unspecified abnormal findings in urine; R17 Unspecified jaundice; E78.2 Mixed hyperlipidemia; E55.9 Vitamin D deficiency, unspecified
CPT/HCPCS: 36415; 80048; 81001; 82306

== ENCOUNTER 2024-06-05 12:13 | Inpatient (IN) | payer MEDICARE, MEDICAID ==
[~2024-06-05] VITALS: Ht 175.3 cm; Wt 104.0 kg
--- NOTE | 2024-06-05 13:03 | ED.PDOC ---
HPI (NEURO) HPI Comments 74y F who presents to the ED for chief complaint of generalized weakness. Pt states she has been having weakness since earlier this AM. Pt states she went to PCP appt for follow up after being dx with bronchitis 3 weeks prior. Pt states she told PCP that earlier this AM, after taking her blood pressure meds, she was watching TV and got stressed out watching the news and started to L face numbness and R arm weakness. Pt states he was told by PCP to come to the ED for further evaluation. Pt in the ED, is alert and oriented x 4 and able to answer all questions. Pt otherwise denies any other symptoms at this time. Chief Complaint: General Weakness Time Seen by MD: 12:57 Primary Care Provider: UNKNOWN Reviewed Notes: Nurses Notes, Allergies Information Source: Patient Mode of Arrival: Ambulatory Brought in by: self Severity: Moderate Dizziness/Weakness Severity: Does not affect activitie Headache Severity: None Timing: Hours Duration: Since onset Prehospital treatment: Treatment (htn meds) Weakness Location: (R) Arm Numbness Location: (R) Arm Onset: At rest Circumstances: Spontaneous Symptoms: Weakness History of: Hypertension Modifying factors: Nothing Associated Signs and Symptoms: Numbness Past Medical History PAST MEDICAL HISTORY: HTN, PE Surgical History: Surgical History (Other): b/l knee, R hip, COMBER FIXER History: Denies all COMBER FIXER Hx Family History Family History: Reviewed,noncontributory to illness Social History Smoker: Non-Smoker Alcohol: Denies ETOH Use Drugs: Denies Drug Use Lives In: Home Constitutional: reports: weakness; denies: chills, diaphoresis, fatigue, fever, malaise, sweats, others EENTM: denies: blurred vision, double vision, ear bleeding, ear discharge, ear drainage, ear pain, ear ringing, eye pain, eye redness, hearing loss, mouth pain, mouth swelling, nasal discharge, nose bleeding, nose congestion, nose pain, photophobia, tearing, throat pain, throat swelling, voice changes, others Respiratory: denies: cough, hemoptysis, orthopnea, SOB at rest, shortness of breath, SOB with excertion, stridor, wheezing, others Cardiovascular: denies: chest pain, dizzy spells, diaphoresis, Dyspnea on exertion, edema, irregular heart beat, left arm pain, lightheadedness, palpitations, PND, syncope, others Gastrointestinal: denies: abdomen distended, abdominal pain, blood streaked bowels, constipated, diarrhea, dysphagia, difficulty swallowing, hematemesis, melena, nausea, poor appetite, poor fluid intake, rectal bleeding, rectal pain, vomiting, others Genitourinary: denies: abnormal vagina bleeding, burning, dyspareunia, dysuria, flank pain, frequency, hematuria, incontinence, pain, , vagina discharge, urgency, others Neurological: reports: numbness (L side of face, R arm), weakness; denies: diz ziness, fainting, headache, left sided numbness, left sided weakness, paresthesia, pre-existing deficit, right sided numbness, right sided weakness, seizure, speech problems, tingling, tremors, others Musculoskeletal: denies: back pain, gout, joint pain, joint swelling, muscle pain, muscle stiffness, neck pain, others Integumetry: denies: bruises, change in color, change in hair/nails, dryness, laceration, lesions, lumps, rash, wounds, others Allergic/Immunocompromised: denies: Difficulty Healing, Frequent Infections, Hives, Itching, others Hematologic/Lymphatic: denies: anemia, blood clots, easy bleeding, easy bruising, swollen glands, others Endocrine: denies: excessive hunger, excessive sweating, excessive thirst, excessive urination, flushing, intolerance to cold, intolerance to heat, unexplained weight gain, unexplained weight loss, others Psychiatric: denies: anxiety, bipolar disorder, depression, hopeless, panic disorder, schizophrenia, sleepless, suicidal, others All Other Systems: Reviewed and Negative Physical Exam General Appearance: No Apparent Distress HEENT: Normal ENT Inspection, Pharynx Normal, TMs Normal Neck: Full Range of Motion, Non-Tender, Normal, Normal Inspection Respiratory: Chest Non-Tender, Lungs Clear, No Accessory Muscle Use, No Respi ratory Distress, Normal Breath Sounds Cardiovascular: No Edema, No JVD, No Murmur, No Gallop, Normal Peripheral Pulses, Regular Rate/Rhythm Breast Exam: Deferred Gastrointestinal: No Organomegaly, Non Tender, No Pulsatile Mass, Normal Bowel Sounds, Soft Genitalia: Deferred Pelvic: Deferred Rectal: Deferred Extremities: No calf tenderness, Normal capillary refill, Normal inspection, Normal range of motion, Non-tender, No pedal edema Musculoskeletal : Apperance: Normal Neurologic: Alert, oil spot washer II-XII nml as Tested, No Motor Deficits, Normal Affect, Normal Mood, No Sensory Deficits Cerebellar Function: Normal Reflexes: Normal Skin: Dry, Normal Color, Warm Lymphatic: No Adenopathy EKG EKG : Pulse Rate (adult): 82 [place]: RAD Cardiac Rhythm: NSR Block: None Hypertrophy: None ST: Normal Comments low voltage Was a procedure done? Was a procedure done?: No Differential Diagnosis (SZ) Seizure: N/A General Weakness: Anemia, Dehydration, Electrolyte imbalance, Encephalopathy, Hypoglycemia, Hypotension, Hypovolemia, TIA Headache: Migraine, Sinusitis X-Ray, Labs, Meds, VS Vital Signs Date Time Temp Pulse Resp B/P (MAP) Pulse Ox O2 Delivery O2 Flow Rate FiO2 06/05/24 13:03 82 06/05/24 12:28 98.0 98 18 133/92 (106) 96 Lab Test 06/05/24 13:07 Range/Units White Blood Count 4.5 4.4-10.8 10^3/uL Red Blood Count 4.51 4.0-5.20 10^6/uL Hemoglobin 13.2 12.2-16.2 g/dL Hematocrit 38.9 36.0-46.0 % Mean Corpuscular Volume 86.4 80.0-100.0 fL Mean Corpuscular Hemoglobin 29.2 28.0-32.0 pg Mean Corpuscular Hemoglobin Concent 33.8 32.0-36.0 g/dL Red Cell Distribution Width 15.0 H 11.8-14.3 % Platelet Count 175 140-450 10^3/uL Mean Platelet Volume 9.0 6.9-10.8 fL Neutrophils (%) (Auto) 56.1 37.0-80.0 % Lymphocytes (%) (Auto) 31.8 10.0-50.0 % Monocytes (%) (Auto) 11.6 0.0-12.0 % Eosinophils (%) (Auto) 0.0 0.0-7.0 % Basophils (%) (Auto) 0.5 0.0-2.0 % Neutrophils # (Auto) 2.5 1.6-8.6 10 ^3/uL Lymphocytes # (Auto) 1.4 0.4-5.4 10 ^3/uL Monocytes # (Auto) 0.5 0-1.3 10 ^3/uL Eosinophils # (Auto) 0 0-0.8 10 ^3/uL Basophils # (Auto) 0 0-0.2 10 ^3/uL Nucleated Red Blood Cells 0.1 % Sodium Level 141 136-145 mmol/L Potassium Level 4.2 3.5-5.1 mmol/L Chloride Level 105 98-107 mmol/L Carbon Dioxide Level 29 20-31 mmol/L Anion Gap 7 5-15 Blood Urea Nitrogen 17 9-23 mg/dL Creatinine 0.77 0.550-1.02 mg/dL Glomerular Filtration Rate Calc 82 >90 mL/min BUN/Creatinine Ratio 22.1 H 10.0-20.0 Serum Glucose 135 H 74-106 mg/dL Calcium Level 11.2 H 8.7-10.4 mg/dL Troponin I High Sensitivity 4 </=34 ng/L The patient's CBC and chemistry panel are within normal limits The troponin levels negative The patient feels much better at this time. The patient feels that this could be secondary to the stress of what she was watching television. She states that she would like to go home. At this time the patient has no chest pain We did explain to her that these symptoms could be secondary to cardiac disease but she states that she would like to just go home. The patient denies any other complaints at this time. Time of 1ST Reevaluation: 13:30 Reevaluation 1ST: Unchanged Time of 2ND Reevaluation: 14:24 Reevaluation 2ND: Improved Patient Education/Counseling: Diagnosis, Treatment, Prognosis, Need For Follow Up Family Education/Counseling: No Family Present Additional Information - I reviewed the following notes from patient's past medical encounters: - The following tests were ordered, and results were reviewed by me: (Labs, X- Ray, EKG): trop x1, cbc, cmp, ekg x1 - Additional information was gathered from interviewing the following independent Historian: (Family, Other Providers, EMT): none - I reviewed and agreed with the following test results read by other provider: (X-ray, CT, US): none - I discussed treatments and results with medical personnel and: (consultants, family): none Departure 1 Departure Time of Disposition: 14:24 Impression: Primary Impression: Acute anxiety Disposition: 01 HOME / SELF CARE / HOMELESS Condition: Fair Discharged With: Self Critical Care Note Critical Care Time?: No Stability Stability form required: No Heart Score Heart Score: Heart Score Response (Comments) Value History N/A 0 EKG N/A 0 Age N/A 0 Risk Factors N/A 0 Troponin N/A 0 Total 0 I personally scribed for ARLYN CHASE MD ([email or web address]) on 06/05/24 at 13:03. Electronically submitted by Abbie Miranda ([facility]). ARLYN CHASE MD Jun 05, 2024 13:03
[2024-06-05 13:20] LABS: Basophils # (auto) 0 10 ^3/uL (0-0.2); Basophils % (auto) 0.5 % (0.0-2.0); Eosinophils # (auto) 0 10 ^3/uL (0-0.8); Hematocrit 38.9 % (36.0-46.0); Hemoglobin 13.2 g/dL (12.2-16.2); Lymphocytes # (auto) 1.4 10 ^3/uL (0.4-5.4); Lymphocytes % (auto) 31.8 % (10.0-50.0); Mean Corpuscular Hemoglobin 29.2 pg (28.0-32.0); Mean Corpuscular Hgb Conc. 33.8 g/dL (32.0-36.0); Mean Corpuscular Volume 86.4 fL (80.0-100.0); Monocytes # (auto) 0.5 10 ^3/uL (0-1.3); Monocytes % (auto) 11.6 % (0.0-12.0); Neutrophils # (auto) 2.5 10 ^3/uL (1.6-8.6); Neutrophils % (auto) 56.1 % (37.0-80.0); Nucleated Red Blood Cells % 0.1 %; Platelet Count (auto) 175 10^3/uL (140-450); Red Blood Cells 4.51 10^6/uL (4.0-5.20); White Blood Cell 4.5 10^3/uL (4.4-10.8)
[2024-06-05 13:51] LABS: Chloride 105 mmol/L (98-107); Potassium 4.2 mmol/L (3.5-5.1); Sodium 141 mmol/L (136-145)
[2024-06-05 13:52] LABS: Anion Gap 7 (5-15); Carbon Dioxide 29 mmol/L (20-31)
[2024-06-05 13:57] LABS: BUN/Creatinine Ratio 22.1 (10.0-20.0); Blood Urea Nitrogen 17 mg/dL (9-23)
[2024-06-05 14:02] LABS: Calcium 11.2 mg/dL (8.7-10.4); Glucose 135 mg/dL (74-106)
--- NOTE | 2024-06-05 16:14 | DVH ---
XY CHEST TWO VIEWS ROUTINE CLINICAL HISTORY: cp COMPARISON: 05/23/2023 TECHNIQUE: Frontal and lateral view of the chest was obtained FINDINGS: Lines and Tubes: None Lungs: Minimal blunting of the right costophrenic angle. Hazy opacification of the lateral mid to low er lung zones which may be from overlying structures. No pneumothorax. Cardiomediastinal contours: Unremarkable Bones: No acute osseous abnormality. IMPRESSION: Trace right-sided pleural effusion /atelectasis.
[2024-06-05 16:23] VITALS: TEMP 97.6
[2024-06-05] MEDS ORDERED: ACETAMINOPHEN 325 MG TAB PO PRN (19:45)
[2024-06-05] MEDS ORDERED: ONDANSETRON HCL 4 MG/2 ML VIAL IV PRN (19:45)
[2024-06-05 20:57] VITALS: BP 142/71; PULSE 81; RESP 20; O2SAT 98
--- NOTE | 2024-06-05 21:14 | DVHHP2 ---
Review of Systems Allergies: Coded Allergies: NO KNOWN ALLERGIES (Unverified , 11/22/22) Medications Current Medications Medications Dose Ordered Sig/James Route Start Time Stop Time Status Last Admin Dose Admin Aspirin 81 mg DAILY PO 06/06/24 10:00 Atorvastatin Calcium 10 mg HS PO 06/05/24 22:00 Amlodipine Besylate 10 mg DAILY PO 06/06/24 10:00 Sertraline HCl 50 mg DAILY PO 06/06/24 10:00 Ondansetron HCl 4 mg Q4HP PRN IV 06/05/24 19:45 Enoxaparin Sodium 40 mg DAILY SC 06/06/24 10:00 Acetaminophen 650 mg Q6HP PRN PO 06/05/24 19:45 Exam Vital Signs Vital Signs Date Time Temp Pulse Resp B/P (MAP) Pulse Ox O2 Delivery O2 Flow Rate FiO2 06/05/24 16:23 97.6 76 20 150/83 (105) 92 97.6 Labs/Xrays Labs Test 06/05/24 20:42 06/05/24 13:07 Range/Units White Blood Count 4.5 4.4-10.8 10^3/uL Red Blood Count 4.51 4.0-5.20 10^6/uL Hemoglobin 13.2 12.2-16.2 g/dL Hematocrit 38.9 36.0-46.0 % Mean Corpuscular Volume 86.4 80.0-100.0 fL Mean Corpuscular Hemoglobin 29.2 28.0-32.0 pg Mean Corpuscular Hemoglobin Concent 33.8 32.0-36.0 g/dL Red Cell Distribution Width 15.0 H 11.8-14.3 % Platelet Count 175 140-450 10^3/uL Mean Platelet Volume 9.0 6.9-10.8 fL Neutrophils (%) (Auto) 56.1 37.0-80.0 % Lymphocytes (%) (Auto) 31.8 10.0-50.0 % Monocytes (%) (Auto) 11.6 0.0-12.0 % Eosinophils (%) (Auto) 0.0 0.0-7.0 % Basophils (%) (Auto) 0.5 0.0-2.0 % Neutrophils # (Auto) 2.5 1.6-8.6 10 ^3/uL Lymphocytes # (Auto) 1.4 0.4-5.4 10 ^3/uL Monocytes # (Auto) 0.5 0-1.3 10 ^3/uL Eosinophils # (Auto) 0 0-0.8 10 ^3/uL Basophils # (Auto) 0 0-0.2 10 ^3/uL Nucleated Red Blood Cells 0.1 % Sodium Level 141 136-145 mmol/L Potassium Level 4.2 3.5-5.1 mmol/L Chloride Level 105 98-107 mmol/L Carbon Dioxide Level 29 20-31 mmol/L Anion Gap 7 5-15 Blood Urea Nitrogen 17 9-23 mg/dL Creatinine 0.77 0.550-1.02 mg/dL Glomerular Filtration Rate Calc 82 >90 mL/min BUN/Creatinine Ratio 22.1 H 10.0-20.0 Serum Glucose 135 H 74-106 mg/dL Calcium Level 11.2 H 8.7-10.4 mg/dL Assessment/Plan My Orders Orders - AGUSTÍN NI Procedure Category Date Status Time Aspirin Tablet PHA 06/06/24 In Process 10:00 Atorvastatin (Lipitor) PHA 06/05/24 In Process 22:00 Amlodipine Tablet PHA 06/06/24 In Process (Norvasc Tablet) 10:00 Sertraline Hcl PHA 06/06/24 In Process (Zoloft) 10:00 Basic Metabolic Panel LAB 06/06/24 Verified 04:00 Admit ADMIT 06/05/24 Transmitted 19:31 Ondansetron Hcl PHA 06/05/24 In Process (Zofran) 19:45 Enoxaparin Sodium PHA 06/06/24 In Process (Lovenox) 10:00 Cardiac DIET 06/06/24 Transmitted Diet-2gna,Lofat,Lochol Breakfast Echo 2d Mode Cardiac US 06/05/24 Logged DOP 19:31 Condition: Stable EULA 06/05/24 In Process 19:31 Acetaminophen Tablet PHA 06/05/24 In Process (Tylenol Tablet) 19:45 Bedrest With Bathroom EULA 06/05/24 In Process Privileg 19:31 Troponin-I Hs LAB 06/05/24 In Process 19:31 AGUSTÍN NI Jun 05, 2024 21:14
--- NOTE | 2024-06-05 21:51 | DVHHP2 ---
History of Present Illness Reason for Visit: Chest pain History of Present Illness 74-year-old female presents for evaluation of chest pain. Patient reports developing left-sided tingling that radiate to her left arm and with left-sided chest pain. When she checked her blood pressure in the morning and was reading in the 180s. She states taking a p.r.n. clonidine 0.1 mg. Currently she reports mild left-sided chest pressure. Her blood pressure has normalized in the 130s. Denies shortness or breath. No dizziness or tingling. No other acute complaints reported. Past Medical History Hypertension, PE, dyslipidemia Past Surgical History Family History Noncontributory Smoke: No ALCOHOL: none Drugs: None Lives: with Family Review of Systems Review of Systems Review of systems are currently negative otherwise addressed in HPI. Allergies: Coded Allergies: NO KNOWN ALLERGIES (Unverified , 11/22/22) Medications Current Medications Medications Dose Ordered Sig/James Route Start Time Stop Time Status Last Admin Dose Admin Aspirin 81 mg DAILY PO 06/06/24 10:00 Atorvastatin Calcium 10 mg HS PO 06/05/24 22:00 Amlodipine Besylate 10 mg DAILY PO 06/06/24 10:00 Sertraline HCl 50 mg DAILY PO 06/06/24 10:00 Ondansetron HCl 4 mg Q4HP PRN IV 06/05/24 19:45 Enoxaparin Sodium 40 mg DAILY SC 06/06/24 10:00 Acetaminophen 650 mg Q6HP PRN PO 06/05/24 19:45 Exam Vital Signs Vital Signs Date Time Temp Pulse Resp B/P (MAP) Pulse Ox O2 Delivery O2 Flow Rate FiO2 06/05/24 20:57 81 20 142/71 (94) 98 06/05/24 16:23 97.6 97.6 Exam Gen: 74-year-old female in mild distress, obese Skin: Warm, dry, normal color and texture, no rash. HEENT: Normocephalic atraumatic, mucous membranes moist and pink. Neck: Cervical and supraclavicular nodes normal without enlargement, trachea is midline, thyroid gland is normal without masses. Pulmonary: Clear to auscultation and percussion bilaterally. Cardiac: Regular rate and rhythm. No murmur Abdomen: Soft, nontender, nondistended, bowel sounds present all 4 quadrants, no guarding, no rigidity, no organomegaly. Extremities: No cyanosis, clubbing, no edema Neuro: Cranial nerves II through XII grossly intact, normal affect and speech, no focal motor deficits. Labs/Xrays ORDERING PHYSICIAN: ARLYN CHASE MD PROCEDURE(s): CXR2 - CHEST TWO VIEWS ROUTINE REASON: cp ORDER NUMBER(s): [id number], ACCESSION NUMBER(s): [id number] XY CHEST TWO VIEWS ROUTINE CLINICAL HISTORY: cp COMPARISON: 05/23/2023 TECHNIQUE: Frontal and lateral view of the chest was obtained FINDINGS: Lines and Tubes: None Lungs: Minimal blunting of the right costophrenic angle. Hazy opacification of the lateral mid to lower lung zones which may be from overlying structures. No pneumothorax. Cardiomediastinal contours: Unremarkable Bones: No acute osseous abnormality. IMPRESSION: Trace right-sided pleural effusion /atelectasis. Labs Test 06/05/24 20:42 06/05/24 13:07 Range/Units White Blood Count 4.5 4.4-10.8 10^3/uL Red Blood Count 4.51 4.0-5.20 10^6/uL Hemoglobin 13.2 12.2-16.2 g/dL Hematocrit 38.9 36.0-46.0 % Mean Corpuscular Volume 86.4 80.0-100.0 fL Mean Corpuscular Hemoglobin 29.2 28.0-32.0 pg Mean Corpuscular Hemoglobin Concent 33.8 32.0-36.0 g/dL Red Cell Distribution Width 15.0 H 11.8-14.3 % Platelet Count 175 140-450 10^3/uL Mean Platelet Volume 9.0 6.9-10.8 fL Neutrophils (%) (Auto) 56.1 37.0-80.0 % Lymphocytes (%) (Auto) 31.8 10.0-50.0 % Monocytes (%) (Auto) 11.6 0.0-12.0 % Eosinophils (%) (Auto) 0.0 0.0-7.0 % Basophils (%) (Auto) 0.5 0.0-2.0 % Neutrophils # (Auto) 2.5 1.6-8.6 10 ^3/uL Lymphocytes # (Auto) 1.4 0.4-5.4 10 ^3/uL Monocytes # (Auto) 0.5 0-1.3 10 ^3/uL Eosinophils # (Auto) 0 0-0.8 10 ^3/uL Basophils # (Auto) 0 0-0.2 10 ^3/uL Nucleated Red Blood Cells 0.1 % Sodium Level 141 136-145 mmol/L Potassium Level 4.2 3.5-5.1 mmol/L Chloride Level 105 98-107 mmol/L Carbon Dioxide Level 29 20-31 mmol/L Anion Gap 7 5-15 Blood Urea Nitrogen 17 9-23 mg/dL Creatinine 0.77 0.550-1.02 mg/dL Glomerular Filtration Rate Calc 82 >90 mL/min BUN/Creatinine Ratio 22.1 H 10.0-20.0 Serum Glucose 135 H 74-106 mg/dL Calcium Level 11.2 H 8.7-10.4 mg/dL Assessment/Plan Assessment/Plan Assessment Hypertensive crisis Noncardiac chest pain Dyslipidemia Obesity Plan Admit the patient to Med surge to the hospitalist Resume home medications As needed antihypertensives Echocardiogram pending Continue treatment per orders. Plan discussed with: Patient My Orders Orders - AGUSTÍN NI AGACNP Procedure Category Date Status Time Aspirin Tablet PHA 06/06/24 In Process 10:00 Atorvastatin (Lipitor) PHA 06/05/24 In Process 22:00 Amlodipine Tablet PHA 06/06/24 In Process (Norvasc Tablet) 10:00 Sertraline Hcl PHA 06/06/24 In Process (Zoloft) 10:00 Basic Metabolic Panel LAB 06/06/24 Verified 04:00 Admit ADMIT 06/05/24 Transmitted 19:31 Ondansetron Hcl PHA 06/05/24 In Process (Zofran) 19:45 Enoxaparin Sodium PHA 06/06/24 In Process (Lovenox) 10:00 Cardiac DIET 06/06/24 Transmitted Diet-2gna,Lofat,Lochol Breakfast Echo 2d Mode Cardiac US 06/05/24 Logged DOP 19:31 Condition: Stable EULA 06/05/24 In Process 19:31 Acetaminophen Tablet PHA 06/05/24 In Process (Tylenol Tablet) 19:45 Bedrest With Bathroom EULA 06/05/24 In Process Privileg 19:31 Troponin-I Hs LAB 06/05/24 In Process 19:31 Date of Service: Jun 05, 2024 Billing Provider: AGUSTÍN NI Common Visit Codes: [id number] INP/OBS CARE (HIGH) AGUSTÍN NI Jun 05, 2024 21:51
[2024-06-05] MEDS ORDERED: ATORVASTATIN 20 MG TAB PO SCH (22:00)
[2024-06-06] MEDS ORDERED: ASPirin 81 mg TAB PO SCH (10:00)
[2024-06-06] MEDS ORDERED: ENOXAPARIN SOD 40 MG/0.4 ML SYRINGE SC SCH (10:00)
[2024-06-06] MEDS ORDERED: SERTRALINE HCL 50 MG TAB PO SCH (10:00)
[2024-06-06] MEDS ORDERED: amLODIPine BESYLATE 5 MG TAB PO SCH (10:00)
--- NOTE | 2024-06-06 10:08 | ECG ---
[facility] Test Date: 2024-06-05 Test Time: 12:30:03 Pat Name: AZEEM MANDUJANO Department: ER Room: [address] [place] [address] A Gender: F [employer] Consultant: IMER : [id number] Requested By: ARLYN CHASE Order Number: [id number] Reading MD: Leonides Leal Measurements Intervals [place] Rate: 82 P: 46 TN: 196 QRS: 89 QRSD: 92 T: 37 QT: 359 QTc: 420 Interpretive Statements Sinus rhythm Borderline right axis deviation Low voltage, precordial leads Baseline wander in lead(s) V5 Electronically Signed On 06-06-2024 22:15:42 PST by Leonides Leal Please click the below link to view image of tracing.
== END 2024-06-05 20:57 | disposition left against medical advice (07) | DRG 305 ==
LOC: ER 12:13 → OVERFLOW 19:31
PROVIDERS: ADMIT Nurse Practitioner; ATTEND Nurse Practitioner
DX: I16.9 Hypertensive crisis, unspecified (principal); E78.5 Hyperlipidemia, unspecified; E66.9 Obesity, unspecified; I10 Essential (primary) hypertension; F41.9 Anxiety disorder, unspecified; Z53.29 Procedure and treatment not carried out because of patient's decision for other reasons; Z68.33 Body mass index [BMI] 33.0-33.9, adult
CPT/HCPCS: 36415; 71046; 80048; 84484; 85025; 93005; G0378

== ENCOUNTER → 2024-07-12 | Outpatient (CLI) | payer MEDICARE, MEDICAID ==
[2024-07-12 12:10] LABS: Basophils # (auto) 0 10 ^3/uL (0-0.2); Basophils % (auto) 0.4 % (0.0-2.0); Eosinophils # (auto) 0 10 ^3/uL (0-0.8); Eosinophils % (auto) 0.2 % (0.0-7.0); Hematocrit 41.1 % (36.0-46.0); Hemoglobin 13.7 g/dL (12.2-16.2); Lymphocytes # (auto) 1.7 10 ^3/uL (0.4-5.4); Lymphocytes % (auto) 38.2 % (10.0-50.0); Mean Corpuscular Hemoglobin 29.1 pg (28.0-32.0); Mean Corpuscular Hgb Conc. 33.3 g/dL (32.0-36.0); Mean Corpuscular Volume 87.5 fL (80.0-100.0); Monocytes # (auto) 0.7 10 ^3/uL (0-1.3); Monocytes % (auto) 15.6 % (0.0-12.0); Neutrophils % (auto) 45.6 % (37.0-80.0); Nucleated Red Blood Cells % 0.1 %; Platelet Count (auto) 149 10^3/uL (140-450); Red Cell Distribution Width 14.5 % (11.8-14.3); White Blood Cell 4.4 10^3/uL (4.4-10.8)
[2024-07-12 13:23] LABS: Alanine Aminotransferase 16 U/L (7-40); Alkaline Phosphatase 62 U/L (46-116); Anion Gap 3 (5-15); Aspartate Aminotransferase 16 U/L (13-40); BUN/Creatinine Ratio 22.4 (10.0-20.0); Bilirubin, Total 0.6 mg/dL (0.2-1.0); Blood Urea Nitrogen 17 mg/dL (9-23); Carbon Dioxide 30 mmol/L (20-31); Glucose 92 mg/dL (74-106); Potassium 4.3 mmol/L (3.5-5.1); Sodium 143 mmol/L (136-145); Total Protein 7.5 g/dL (5.7-8.2)
[2024-07-12 13:27] LABS: Calcium 10.4 mg/dL (8.7-10.4); Chloride 110 mmol/L (98-107)
== END | disposition home or self-care (01) ==
LOC: LAB 11:54
PROVIDERS: ATTEND Internal Medicine
DX: I10 Essential (primary) hypertension (principal); E83.52 Hypercalcemia; R94.4 Abnormal results of kidney function studies; R06.01 Orthopnea
CPT/HCPCS: 36415; 80053; 83880; 85025

== ENCOUNTER 2025-04-01 07:13 | Outpatient (CLI) | payer MEDICARE, MEDICAID ==
[2025-04-01 07:41] LABS: Hematocrit 39.6 % (36.0-46.0); Hemoglobin 13.5 g/dL (12.2-16.2); Mean Corpuscular Hemoglobin 29.1 pg (28.0-32.0); Mean Corpuscular Volume 85.3 fL (80.0-100.0)
[2025-04-01 08:09] LABS: Alanine Aminotransferase 29 U/L (7-40); Alkaline Phosphatase 87 U/L (46-116); Anion Gap 11 (5-15); BUN/Creatinine Ratio 19.0 (10.0-20.0); Blood Urea Nitrogen 15 mg/dL (9-23); Carbon Dioxide 28 mmol/L (20-31); Chloride 106 mmol/L (98-107); Glucose 102 mg/dL (74-106); Potassium 4.5 mmol/L (3.5-5.1); Sodium 145 mmol/L (136-145); Triglycerides 110 mg/dL (< 150)
[2025-04-01 08:10] LABS: Bilirubin, Total 0.7 mg/dL (0.2-1.0); Cholesterol 136 mg/dL (< 200)
[2025-04-01 08:13] LABS: Albumin 5.0 g/dL (3.2-4.8); Calcium 10.9 mg/dL (8.7-10.4); HDL Cholesterol 37 mg/dL (40-59); Total Protein 8.4 g/dL (5.7-8.2)
[2025-04-01 08:32] LABS: Urine Protein, UAD Negative (Negative)
[2025-04-01 08:57] LABS: RBC Morphology Normal; Total Cells Counted 100.0 (100)
== END 2025-04-01 17:00 | disposition home or self-care (01) ==
LOC: LAB 07:13
PROVIDERS: ATTEND Internal Medicine
DX: I10 Essential (primary) hypertension (principal); E11.69 Type 2 diabetes mellitus with other specified complication; Z00.01 Encounter for general adult medical examination with abnormal findings
CPT/HCPCS: 36415; 80053; 80061; 81001; 83036; 84439; 84443; 85007; 85027